=== PATIENT | male | born 1985 | race Caucasian/White ===

== ENCOUNTER 2023-02-03 12:16 | Emergency (ER) | payer MEDICAID ==
[~2023-02-03] VITALS: Ht 182.9 cm; Wt 70.5 kg
[2023-02-03 12:39] VITALS: BP 127/82; PULSE 85; RESP 18; TEMP 99; O2SAT 98
== END 2023-02-03 14:54 | disposition home or self-care (01) ==
LOC: ER 12:17
DX: M79.642 Pain in left hand (principal); R22.32 Localized swelling, mass and lump, left upper limb; M25.532 Pain in left wrist; V00.131A Fall from skateboard, initial encounter; Y93.89 Activity, other specified; Y92.89 Other specified places as the place of occurrence of the external cause; Y99.8 Other external cause status
CPT/HCPCS: 29125; 73110; 73130; 99284